=== PATIENT | female | born 1970 | race Caucasian/White ===

== ENCOUNTER 2017-04-03 17:55 | Outpatient (CLI) | payer BC ==
--- NOTE | 2017-04-03 19:44 | XRay Report ---
FINAL REPORT EXAM: XR CHEST ROUTINE 2V HISTORY: COUGH TECHNIQUE: Two view chest PA and lateral PRIORS: None. FINDINGS: Cardiac and mediastinal contours are unremarkable. No focal pulmonary infiltrate is identified. No pleural fluid collection seen. Pulmonary vasculature is unremarkable. IMPRESSION: Negative two-view chest
== END 2017-04-03 17:56 | disposition home or self-care (01) ==
LOC: XRAY 17:55
PROVIDERS: ATTEND Internal Medicine
DX: J45.991 Cough variant asthma (principal)
CPT/HCPCS: 71046